=== PATIENT | female | born 1940 | race American Indian/Alaskan Native ===

== ENCOUNTER 2017-04-24 12:11 | Outpatient (CLI) | payer MEDICARE ==
--- NOTE | 2017-04-25 15:14 | Ultrasound Report ---
BILATERAL BREAST ULTRASOUND: 04/24/17 12:11:00 CLINICAL: Newly diagnosed left breast cancer. She had a positive biopsy for cancer at [facility]. The biopsied mass was described to be at 1 o'clock 9 cm from the nipple measuring 1.2 x 1.3 x 1.2 cm. A complex cyst was described in the left breast measuring 3.3 x 4.2 x 3.1 cm at 2 o'clock 7-8 cm from the nipple. This cyst was aspirated. She has a pacer device which prevents her from having a bilateral breast MRI for a more thorough evaluation of both breasts. COMPARISON: [facility] bilateral diagnostic mammogram and left breast ultrasound 03/10/17. FINDINGS: Ultrasound of the right breast(including all four quadrants and the retroareolar area) was performed and demonstrated numerous benign cysts and no solid mass. The technologist reported three solid masses at 1 o'clock, 6 o'clock and 7 o'clock but I could not repeat produce the finding. These appear to be normal fat lobules rather than masses. A benign cyst at 12 o'clock 4 cm from the nipple measures 1.4 x 1.2 x 2.0 cm. A benign cyst at 3 o'clock 5 cm from the nipple measures 1.6 x 0.9 x 1.3 cm. A benign cyst at 8:30 o'clock 7.5 cm from the nipple measures 0.9 and 0.5 x 0.9 cm. Ultrasound of the left breast (including all four quadrants and the retroareolar area) was performed and demonstrated a solid irregular hypoechoic shadowing mass at 2 o'clock 9 cm from the nipple. It appears to correlate with the biopsied mass and measures 1.2 x 1.1 x 1.0 cm. I also identified a suspicious shadowing irregular hypoechoic mass at 12 o'clock 3 cm from the nipple measuring 1.0 x 0.7 x 0.8 cm. Numerous benign cysts of the left breast. Cyst at 1 o'clock 5 cm from the nipple measure 2.6 x 1.7 x 2.0 cm and 4.0 x 0.7 x 3.8 cm. A slightly irregular cyst at 3 o'clock 9 cm from the nipple measures 1.7 x 1.1 x 1.6 cm and appears to correlate with the complex cyst which was aspirated and described to be at 2 o'clock 7-8 cm from the nipple. IMPRESSION: 1. A known left breast cancer at 2 o'clock 9 cm from the nipple and a suspicious 1.0 cm mass at 12 o'clock 3 cm from the nipple. Recommend ultrasound guided biopsy of this left breast mass at 12 o'clock. 2. Numerous bilateral benign cysts. 3. No suspicious finding in the right breast. BI-RADS RECOMMENDATION:
== END 2017-04-24 12:12 | disposition home or self-care (01) ==
LOC: SPVWC 12:11
PROVIDERS: ATTEND Surgery
DX: C50.412 Malignant neoplasm of upper-outer quadrant of left female breast (principal); N60.01 Solitary cyst of right breast

== ENCOUNTER 2017-04-29 09:48 | Outpatient (CLI) | payer MEDICARE ==
--- NOTE | 2017-04-29 14:15 | Mammography Report ---
LEFT DIGITAL DIAGNOSTIC MAMMOGRAM: 04/29/17 09:48:00 CLINICAL: Newly diagnosed left breast cancer at 2 o'clock and immediately status post biopsy of a second lesion at 12 o'clock approximately 4 cm from the nipple. COMPARISON:[facility] recent mammogram. FINDINGS: A biopsy clip is now identified at 12 o'clock 4 cm from the nipple and correlates with today's biopsy. The known cancer is at 2 o'clock and is approximately 11 cm from the nipple. A spiculated lesion at 2 o'clock is identified only on the CC view. IMPRESSION: Concordant clip placement status post ultrasound biopsy of a second lesion. BI-RADS CATEGORY: 6--Known Cancer
== END 2017-04-29 09:49 | disposition home or self-care (01) ==
LOC: SPVWC 09:48
PROVIDERS: ATTEND Surgery
DX: C50.412 Malignant neoplasm of upper-outer quadrant of left female breast (principal)

== ENCOUNTER 2017-04-30 15:06 | Outpatient (CLI) | payer MEDICARE | END 2017-04-30 15:07 | disposition home or self-care (01) | LOC: LABHHL 15:06 | PROVIDERS: ATTEND Surgery | DX: N60.82 Other benign mammary dysplasias of left breast (principal) | CPT/HCPCS: 88305 ==

== ENCOUNTER 2017-05-28 06:43 | Day surgery (SDC) | payer MEDICARE ==
[2017-05-28] MEDS ORDERED: NACL BACTERIOSTATIC INFILTRATI ONE (08:03)
[2017-05-28] MEDS ORDERED: SUBLIMAZE IV PRN (08:30)
[2017-05-28] MEDS ORDERED: XYLOCAINE 1% 20 mL INFILTRATI NR ×2 (08:30→10:00)
--- NOTE | 2017-05-28 08:52 | Anesthesia Consultation ---
Anesthesia Consult and Med Hx - Airway Anesthetic Teeth Evaluation: Good ROM Head & Neck: Adequate Mental/Hyoid Distance: Adequate Mallampati Class: Class III Intubation Access Assessment: Probably Good - Pulmonary Exam CTA: Yes - Cardiac Exam Cardiac Exam: RRR - Pre-Operative Health Status ASA Pre-Surgery Classification: ASA3 Proposed Anesthetic Plan: General - Pulmonary Hx Smoking: No - Cardiovascular System Hx Hypertension: Yes (OVER 25 YEARS) Hx Pacemaker: Yes (ICD - I suggest post surgical interrogation) - Central Nervous System Hx Psychiatric Problems: No - Gastrointestinal Hx Gastroesophageal Reflux Disease: No - Endocrine Hx Non-Insulin Dependent Diabetes: No - Other Systems Hx Alcohol Use: Yes (RARELY) Hx Substance Use: No Hx Cancer: Yes
--- NOTE | 2017-05-28 08:55 | Anesthesia Day of Surgery ---
Anesthesia Day of Surgery - Day of Surgery Patient Examined: Yes Patient H&P Reviewed: Yes Patient is NPO: Yes Beta Blockers: Yes (The patient indicates that she took her usual dose of Coreg last night.) Cardiac Clearance: Yes Pulmonary Clearance: Yes Goran's Test: N/A
[2017-05-28] MEDS ORDERED: MARCAINE 0.5% INFILTRATI NR (09:00)
[2017-05-28] MEDS ORDERED: VERSED IV NR (09:00)
[2017-05-28] MEDS ORDERED: NACL P/F VIAL (10 ML) INFILTRATI NR (10:00)
[2017-05-28] MEDS ORDERED: NACL 0.9% 1000 ML 1,000 ML IV SCH (10:00)
[2017-05-28] MEDS ORDERED: ZOFRAN IV PRN ×2 (10:00→18:24)
[2017-05-28] MEDS ORDERED: XYLOCAINE 1% 20 mL ONE (10:04)
[2017-05-28] MEDS ORDERED: ANCEF/STERILE WATER 2 GM/20 ML IV NR (11:00)
[2017-05-28] MEDS ORDERED: DIPRIVAN 10 MG/ML IV ONE (14:03)
[2017-05-28] MEDS ORDERED: ZEMURON IV ONE (14:04)
[2017-05-28] MEDS ORDERED: SUBLIMAZE ONE (14:04)
[2017-05-28] MEDS ORDERED: XYLOCAINE MPF 2% ONE (14:04)
[2017-05-28] MEDS ORDERED: ePHEDrine SULFATE ONE (15:21)
--- NOTE | 2017-05-28 16:39 | Mammography Report ---
NEEDLE LOCALIZATION AND HOOKWIRE PLACEMENT LEFT BREAST:05/28/17 CLINICAL: Left breast cancer at 2 o'clock 9 cm from the nipple and a second mass at 12 o'clock 3 cm from the nipple. COMPARISON: 04/29/17 FINDINGS: Using mammographic guidance, sterile technique and 1% lidocaine local anesthesia, a 5-cm Peres hookwire was placed from a CC from above approach to localize the mass at 12 o'clock and a 7.5 cm Peres hookwire was placed from a CC from above approach to localize the cancer at 2 o'clock. Two views demonstrated satisfactory targeting. Hook wires were deployed satisfactorily. The patient tolerated the procedure well and there were no apparent complications. IMPRESSION: Uncomplicated hookwire placement at 2 sites left breast.
[2017-05-28] MEDS ORDERED: MARCAINE 0.25% INFILTRATI ONE ×2 (17:05→17:13)
[2017-05-28] MEDS ORDERED: XYLOCAINE 1% 20 mL INFILTRATI ONE (17:13)
[2017-05-28] MEDS ORDERED: ZOFRAN ONE (17:59)
--- NOTE | 2017-05-28 17:59 | Short Stay Summary ---
Short Stay Documentation Date of service: 05/28/17 - History H&P: obtained from office - Allergies and Medications Current Medications: Allergies latex Allergy (Verified 05/28/17 12:58) Rash Home Medications Medication Instructions Recorded Confirmed Last Taken Type Aspirin EC [Ecotrin] 325 mg PO QDAY 05/26/17 05/28/17 05/25/17 History Carvedilol [Carvedilol] 25 mg PO BID 05/26/17 05/28/17 05/28/17 13:15 History Valsartan/Hydrochlorothiazide 1 tab PO DAILY 05/26/17 05/28/17 05/27/17 History [Valsartan-Hctz 160-25 mg Tab] Acetaminophen [Pain Relief] 500 mg PO BID 05/28/17 05/28/17 05/27/17 History HYDROcodone/APAP 5-325 [Dimmitt 1 each PO Q6HR PRN #30 tablet 05/28/17 Unknown Rx 5/325] Active Medications Sodium Chloride (Nacl 0.9% 1000 Ml) 1,000 mls @ 42 mls/hr IV DIRECT TRINH Last Admin: 05/28/17 11:20 Dose: 42 mls/hr Lidocaine (Xylocaine 1% 20 Ml) 20 ml INFILTRATI ONCE NR Stop: 05/28/17 21:00 Midazolam HCl (Versed) 2 mg IV PREOP NR Stop: 05/28/17 23:59 Ondansetron HCl (Zofran) 4 mg IV ONCE PRN PRN Reason: Nausea And Vomiting Sodium Chloride (Nacl P/F Vial (10 Ml)) 1 ml INFILTRATI PREOP NR Stop: 05/28/17 21:00 - Brief post op/procedure progress note Date of procedure: 05/28/17 Pre-op diagnosis: Left breast cancer of the upper outer quadrant Post-op diagnosis: same Procedure: Left breast ultrasound guided cyst aspiration, left needle localization excisional biopsy, left needle localization partial mastectomy and left SLNB Surgeon: EVERT ADAM Telecom Engineer: JAYME RAZO Estimated blood loss: minimal Pathology: list (left breast excisional biopsy; left partial mastectomy; left SLNB) Specimen disposition: to lab Condition: stable - Disposition Condition at discharge: Good Disposition: DC- TO HOME OR SELFCARE Short Stay Discharge Plan Activity: other (no heavy lifting) Diet: regular Wound: other (keep incision clean and dry and may shower in 48 hours; no baths, pools or lakes; do not rub or scrub incision) Follow up with: JUAN F ROGEL MD [Primary Care Provider] - 7 Days EVERT ADAM MD [Staff Physician] - 7 Days Prescriptions: HYDROcodone/APAP 5-325 [Dimmitt 5/325] 1 each PO Q6HR PRN #30 tablet PRN Reason: Pain
--- NOTE | 2017-05-28 18:19 | Operative Report ---
Operative Report Operative Report: Date of Service: May 28, 2017 Preoperative diagnosis: Left breast cancer of the upper outer quadrant Postoperative diagnosis: Same Procedure: Left needle localization partial mastectomy of the upper outer quadrant, left needle localization excisional biopsy of the upper outer quadrant , left breast ultrasound guided cyst aspiration and left SLNB Surgeon: Darlin Velazco MD Cocoa Bean Roaster: Kenia Sams MD Anesthesia: General Findings: Left wire and clip present within radiograph specimen of partial mastectomy and excisional biopsy; left breast cyst aspiration at the 3:00 position 9 cm from the nipple with typical cyst contents; 3 SLNs Complications: None EBL: Minimal Disposition: PACU in good condition Indications for operative procedure: This is a 76 year old lady with newly diagnosed left breast cancer of the upper outer quadrant, Stage I. Recommendations were to proceed with breast conservation. Patient had left breast biopsy at the 12:00 position with benign pathology but recommendations were for excisional biopsy given appearance on ultrasound and breast MRI contraindicated given debrillator/pacemaker. Left breast cyst aspiration recommended as well given complex lesion. Patient wished to proceed with the above procedures. Procedure in detail: The patient was taken to radiology for wire placement for localization of known area of cancer and for lesion for excisional biopsy at the 12:00 position. Patient was then taken to the operating room. Gen. anesthesia was administered. The left nipple was injected with radioisotope. The left breast and axilla were prepped and draped in the normal sterile operative fashion. Both wires was identified. Timeout was performed. Gamma probe was inserted into the axilla. The area of hot spot was identified. First began with left breast excisional biopsy. A superior periareolar incision was made with a 15 blade knife. First began raising of the lateral flap with removal of the wire from the skin, follwed by raising of the medial flap, superior flap and inferior flap. The breast area of concern was appropriately removed posteriorly with the aid of the bovie cautery. The wire was 8 cm posterior to the lesion as noted prior to surgery. Specimen was marked and then sent to pathology and radiology; radiograph specimen with clip present. Breast cavity was irrigated and hemostasis was obtained. The breast cavity was anesthetized with 1% lidocaine mixed with quarter percent Marcaine. The subcutaneous tissues were approximated and closed using interrupted 3-0 Vicryl followed by a running 4-0 Monocryl and skin affix. Left breast cyst was then identified using the ultrasound at the 3:00 position 8 -9 cm from the nipple. Using an 19 gauge needle, cyst was aspirated with complete resolution with typical cysts contents. Attention was then taken towards the left breast. Lateral breast incision was made with a 15 blade knife and dissection taken down to subcutaneous tissues. First began raising of the lateral flap with removal of the wire from the skin with dissection take down to the pectoralis muscle, followed by raising of the medial flap, superior flap and inferior flap with all flaps taken down to the pectoralis muscle. The breast area of concern was appropriately removed posteriorly from the pectoralis muscle with the aid of the Bovie cautery. The wire was not encountered. Specimen was marked and then sent to pathology and radiology; radiograph speciment with wire, clip and mass present. Breast cavity was irrigated and hemostasis was obtained. Attention was then taken towards the left axilla through the breast incision. Gamma probe was inserted into the axilla. The area of hot spot was identified. The axillary fascia was opened with the Bovie cautery. The gamma probed was inserted into the axilla. 3 SLNs were identified with additional counts less than 10% of the highest count. Lymph node was sent to pathology for permanent processing. Hemostasis was obtained in the left axillary cavity. Axillary cavity was appropriately irrigated and suctioned. Axillary fascia was approximated and closed using interrupted 3-0 Vicryl.The breast cavity was anesthetized with 1% lidocaine mixed with quarter percent Marcaine. A 15 mohawk PHILIP drain was placed in the breast cavity. The posterior deep breast tissues were approximated and closed using interrupted 3-0 Vicryl. The subcutaneous tissues were approximated and closed using interrupted 3-0 Vicryl followed by closing of the skin with a running 4-0 Monocryl and skin affix. The patient tolerated surgery very well and she was awaken from anesthesia without any complication and transported to PACU in good condition. [employer] was then called to ensure patient's debrillator/pacemaker was working properly prior to discharge home.
[2017-05-28] MEDS ORDERED: NARCAN 0.4 MG/1 ML IV PRN (18:24)
--- NOTE | 2017-05-28 18:24 | Post Anesthesia Evaluation ---
- Post Anesthesia Evaluation Patient Participated: Yes Airway Patent: Yes Stable Respiratory Function: Yes Nausea/Vomiting: No Temp > 96.8F: Yes Pain Manageable: Yes Adequeate Hydration: Yes Anesthesia Complications: No
[2017-05-28] MEDS: DILAUDID IV PRN ×2 (18:32→18:42)
[2017-05-28] MEDS ORDERED: NORCO 5/325 PO PRN (18:59)
[2017-05-28] MEDS: APRESOLINE IV PRN ×2 (19:20→19:31)
[2017-05-28 22:09] VITALS: BP 153/70
--- NOTE | 2017-05-29 11:18 | XRay Report ---
SPECIMEN RADIOGRAPH LEFT BREAST: 05/28/17 06:43:00 CLINICAL: Surgical excision of a known cancer. FINDINGS: The targeted mass with a localizer clip and a hookwire are identified within the specimen. IMPRESSION: Excision of the targeted mass.
--- NOTE | 2017-05-29 11:19 | XRay Report ---
SPECIMEN RADIOGRAPH LEFT BREAST: 05/28/17 06:43:00 CLINICAL: Surgical excision of a second lesion with a known cancer in the same breast.. FINDINGS: The targeted localizer clip is identified within the specimen. IMPRESSION: Excision of the targeted lesion.
== END 2017-05-28 21:23 | disposition home or self-care (01) ==
LOC: OR 06:43
PROVIDERS: ATTEND Surgery
DX: C50.412 Malignant neoplasm of upper-outer quadrant of left female breast (principal); N60.12 Diffuse cystic mastopathy of left breast; I50.9 Heart failure, unspecified; I10 Essential (primary) hypertension; M19.90 Unspecified osteoarthritis, unspecified site; Z91.040 Latex allergy status; Z79.82 Long term (current) use of aspirin; Z79.899 Other long term (current) drug therapy; Z95.0 Presence of cardiac pacemaker; Z98.890 Other specified postprocedural states; Z90.710 Acquired absence of both cervix and uterus; Z79.4 Long term (current) use of insulin; Z80.3 Family history of malignant neoplasm of breast; Z85.89 Personal history of malignant neoplasm of other organs and systems
CPT/HCPCS: 10022; 19125; 19281; 19301; 38525; 76098; 78800; 82962; 88112; 88307; 88341; 88342; 88368; A9541; J0360; J0690; J1170; J2405; J2704; J3010; J7030; 88305; 88333; J2250

== ENCOUNTER 2018-09-29 12:27 | Outpatient (CLI) | payer MEDICARE ==
--- NOTE | 2018-09-29 15:33 | Mammography Report ---
LEFT DIGITAL DIAGNOSTIC MAMMOGRAM with CAD: CLINICAL: Breast cancer survivor status post left partial mastectomy. Previously confirmed cysts of the left breast. COMPARISON:03/31/18 FINDINGS: The breast is heterogeneously dense, which may obscure small masses. Stable left upper outer benign postsurgical scar.No mass, architectural distortion or suspicious calcifications. IMPRESSION: No mammographic evidence of malignancy. BI-RADS CATEGORY: 2 - - Benign RECOMMENDATION: Routine mammographic screening. COMMENT: 1. Dense breast tissue, i.e., adenosis, fibrocystic changes, etc., may obscure an underlying neoplasm. 2. Approximately 10% of cancers are not detected with mammography. 3. A negative mammography report should not delay biopsy if a clinically suspicious mass is present. COMMENT: Patient follow-up letters are generated by our [employer] application.
== END 2018-09-29 12:28 | disposition home or self-care (01) ==
LOC: SPVWC 12:27
PROVIDERS: ATTEND Surgery
DX: C50.412 Malignant neoplasm of upper-outer quadrant of left female breast (principal); I11.0 Hypertensive heart disease with heart failure; I50.9 Heart failure, unspecified; Z90.710 Acquired absence of both cervix and uterus

== ENCOUNTER 2019-04-06 14:20 | Outpatient (CLI) | payer MEDICARE ==
--- NOTE | 2019-04-07 13:27 | Mammography Report ---
DIGITAL SCREENING MAMMOGRAM WITH CAD, 04/06/2019 INDICATION: Routine screening mammography. Breast cancer survivor status post left partial mastectomy . TECHNIQUE: Digital bilateral 2D mammography was obtained in the craniocaudal and mediolateral obliq ue projections. This examination was interpreted with the benefit of Computer-Aided Detection analysi s. COMPARISON: 03/31/2018 FINDINGS: Breast Density: The breasts are heterogeneously dense, which may obscure small masses. There is no evidence of dominant mass, suspicious calcifications or architectural distortion in eithe r breast. A left-sided pacemaker obscures a portion of the left upper breast on the MLO view. Left up per outer benign postsurgical scar. Bilateral benign calcifications. IMPRESSION: No mammographic evidence of malignancy. Follow up recommendation: Routine yearly BI-RADS Category 2: Benign. A "normal" or negative report should not discourage follow up or biopsy of a clinically significant f inding. A written summary of these findings will be mailed to the patient. The patient will be entered into a mammography reporting system which will generate a reminder letter for the patient's next appointmen t at the appropriate interval. The [employer] recommends yearly mammograms starting at age 40 and continuing as l nicholsa as a woman is in good health. Breast MRI is recommended for women with an approximate 20-25% or greater lifetime risk of breast cancer, including women with a strong family history of breast or ova wen cancer or who have been treated for Hodgkin's disease. Signer Name: Fredi Gudino MD Signed: 04/06/2019 3:09 PM Workstation Name: [id number]
== END 2019-04-06 14:21 | disposition home or self-care (01) ==
LOC: SPVWC 14:20
PROVIDERS: ATTEND Surgery
DX: Z12.31 Encounter for screening mammogram for malignant neoplasm of breast (principal)
CPT/HCPCS: 77067

== ENCOUNTER 2020-11-07 11:57 | Outpatient (CLI) | payer MEDICARE ==
--- NOTE | 2020-11-07 14:46 | Mammography Report ---
BILATERAL DIGITAL SCREENING MAMMOGRAM WITH CAD HISTORY: Screening mammogram, history of left breast lumpectomy. TECHNIQUE: Routine digital mammographic imaging performed. This examination was interpreted with alfonso womack benefit of Computer-aided Detection analysis. COMPARISON: 04/06/2019, 09/29/2018, 03/31/2018. FINDINGS: Breast Density: heterogeneously dense breast parenchymal pattern which somewhat lessens the sensitivi ty of the evaluation. Digital CC and MLO views demonstrate no mammographic evidence of malignancy. Stable left upper outer breast lumpectomy change. IMPRESSION: No mammographic evidence of malignancy. If the clinical examination remains stable, recommend bilate ral mammogram in approximately one year. BIRADS 2: Benign Finding(s). FURTHER INFORMATION: According to the [employer], yearly mammograms are recommend ed starting at age 40 and continuing as long as a woman is in good health. Clinical Breast Exams shou ld be part of a periodic health exam-about every 3 years for women in their 20s and 30s and every yea r for women 40 and over. Breast self exam is an option for women starting in their 20s. Any breast ch john noted on a breast self exam should be reported promptly to the patient's healthcare provider. Br east MRI is recommended for women with an approximately 20-25% or greater lifetime risk of breast can cer, including women with a strong family history of breast or ovarian cancer and women who have been treated for Hodgkin's disease. A negative Mammography report should not discourage follow up or biopsy of a clinically significant f inding and/or abnormality. Dense breast tissue may obscure small neoplasms. The patient will be entered into a reminder system with a target due date for the next screening mamm ogram. Signer Name: Kaleb Demarco MD Signed: 11/07/2020 2:41 PM Workstation Name: [id number]
== END 2020-11-07 11:58 | disposition home or self-care (01) ==
LOC: SPVWC 11:57
PROVIDERS: ATTEND Surgery
DX: Z12.31 Encounter for screening mammogram for malignant neoplasm of breast (principal)
CPT/HCPCS: 77067